=== PATIENT | female | born 1945 | race Caucasian/White ===

== ENCOUNTER → 2024-01-19 06:20 | Day surgery (SDC) | payer OTHER, SELFPAY | LOC: GI 06:20 | PROVIDERS: ATTENDING PHYSICIAN Internal Medicine Gastroenterology; FAMILY PHYSICIAN Internal Medicine | DX: D12.0 Benign neoplasm of cecum (principal); D12.2 Benign neoplasm of ascending colon; D12.3 Benign neoplasm of transverse colon; K57.30 Diverticulosis of large intestine without perforation or abscess without bleeding; K64.8 Other hemorrhoids; Z86.010 Personal history of colon polyps | CPT/HCPCS: 45385; 45380; 45381; 88305 ==

== ENCOUNTER → 2024-02-08 13:42 | Outpatient (REF) | payer OTHER, SELFPAY | LOC: WDC 13:42 | PROVIDERS: ATTENDING PHYSICIAN Internal Medicine | DX: Z12.31 Encounter for screening mammogram for malignant neoplasm of breast (principal) | CPT/HCPCS: 77063; 77067 ==

== ENCOUNTER → 2024-04-04 09:36 | Outpatient (REF) | payer OTHER, SELFPAY ==
[2024-04-04 10:38] LABS: % Basophils 1.6 % (0-2); % Eosinophils 4.5 % (0-6); % Lymphocytes 35.1 % (20.5-51.1); % Neutrophils 49.8 % (42.2-75.2); Absolute Basophils 0.1 10^3/uL (0-0.2); Absolute Eosinophils 0.2 10^3/uL (0-0.7); Absolute Lymphocytes 1.3 10^3/uL (1.2-3.4); Absolute Monocytes 0.3 10^3/uL (0.1-0.6); Absolute Neutrophils 1.9 10^3/uL (1.4-6.5); Hematocrit 45.1 % (37.0-47.0); Hemoglobin 14.4 g/dL (12.0-16.0); Mean Corp Hgb Conc. 31.9 g/dL (33.0-37.0); Mean Corpuscular Hgb 29.4 pg (27.0-31.0); Mean Corpuscular Volume 92.2 fL (81.0-99.0); Mean Platelet Volume 10.2 fL (7.4-10.4); Nucleated Red Blood Cells % 0 %; Platelet Count 206 10^3/uL (130-400); Red Blood Cell Count 4.89 10^6/uL (4.20-5.40); White Blood Cell Count 3.8 10^3/uL (4.8-10.8)
[2024-04-04 11:30] LABS: ALT (SGPT) 35 U/L (0-35); AST (SGOT) 45 U/L (14-36); Albumin 4.4 g/dl (3.5-5.0); Alkaline Phosphatase 123 U/L (38-126); Blood Urea Nitrogen 18 mg/dl (7-17); Calcium 9.6 mg/dl (8.4-10.2); Carbon Dioxide 26 mmol/L (22-30); Chloride 106 mmol/L (98-107); Glucose 89 mg/dl (70-99); HDL Cholesterol 66 mg/dl; LDL Cholesterol, Calculated 93 mg/dl; Potassium 4.5 mmol/L (3.5-5.1); Sodium 140 mmol/L (135-145); Total Bilirubin 0.5 mg/dl (0.2-1.3); Total Cholesterol 180 mg/dl (50-199); Total Protein 7.4 g/dl (6.3-8.2); Triglyceride 107 mg/dl (10-149); Very Low Density Lipoprotein 21 mg/dl (0-30); eGFR > 60.00
== END ==
LOC: RAD 09:36
PROVIDERS: ATTENDING PHYSICIAN Internal Medicine
DX: Z86.69 Personal history of other diseases of the nervous system and sense organs (principal); R94.5 Abnormal results of liver function studies; E78.5 Hyperlipidemia, unspecified; H81.03 Meniere's disease, bilateral
CPT/HCPCS: 36415; 80053; 80061; 85025; 93880

== ENCOUNTER → 2025-02-11 12:17 | Outpatient (REF) | payer OTHER, SELFPAY | LOC: HWWDC 12:17 | PROVIDERS: ATTENDING PHYSICIAN Internal Medicine | DX: Z12.31 Encounter for screening mammogram for malignant neoplasm of breast (principal) | CPT/HCPCS: 77063; 77067 ==

== ENCOUNTER → 2025-04-03 11:23 | Outpatient (REF) | payer OTHER, SELFPAY ==
[2025-04-03 11:38] LABS: % Basophils 0.9 % (0-2); % Eosinophils 2.2 % (0-6); % Immature Granulocytes 0.3 % (0-0.5); % Monocytes 7.7 % (1.7-9.3); % Neutrophils 51.9 % (42.2-75.2); Absolute Basophils 0.1 10^3/uL (0-0.2); Absolute Eosinophils 0.2 10^3/uL (0-0.7); Absolute Lymphocytes 2.5 10^3/uL (1.2-3.4); Absolute Monocytes 0.5 10^3/uL (0.1-0.6); Absolute Neutrophils 3.5 10^3/uL (1.4-6.5); Hematocrit 44.3 % (37.0-47.0); Hemoglobin 14.7 g/dL (12.0-16.0); Mean Corp Hgb Conc. 33.2 g/dL (33.0-37.0); Mean Corpuscular Hgb 30.6 pg (27.0-31.0); Mean Corpuscular Volume 92.1 fL (81.0-99.0); Mean Platelet Volume 10.1 fL (7.4-10.4); Nucleated Red Blood Cells % 0 %; Platelet Count 228 10^3/uL (130-400); Red Blood Cell Count 4.81 10^6/uL (4.20-5.40); Red Cell Dist. Width 13.2 % (11.5-14.5); White Blood Cell Count 6.7 10^3/uL (4.8-10.8)
[2025-04-03 13:13] LABS: ALT (SGPT) 23 U/L (0-35); AST (SGOT) 27 U/L (14-36); Albumin 4.5 g/dl (3.5-5.0); Alkaline Phosphatase 108 U/L (38-126); Blood Urea Nitrogen 25 mg/dl (7-17); Calcium 9.4 mg/dl (8.4-10.2); Carbon Dioxide 26 mmol/L (22-30); Chloride 109 mmol/L (98-107); Glucose 88 mg/dl (70-99); HDL Cholesterol 76 mg/dl; LDL Cholesterol, Calculated 88 mg/dl; Sodium 143 mmol/L (135-145); Total Bilirubin 0.7 mg/dl (0.2-1.3); Total Cholesterol 183 mg/dl (50-199); Total Protein 7.6 g/dl (6.3-8.2); Triglyceride 96 mg/dl (10-149); Very Low Density Lipoprotein 19 mg/dl (0-30); eGFR > 60.00
== END ==
LOC: REG 11:23
PROVIDERS: ATTENDING PHYSICIAN Internal Medicine
DX: H81.03 Meniere's disease, bilateral (principal); E78.5 Hyperlipidemia, unspecified
CPT/HCPCS: 36415; 80053; 80061; 85025

== ENCOUNTER 2025-04-18 06:29 | Day surgery (SDC) | payer OTHER, SELFPAY | END 2025-04-18 15:20 | disposition home or self-care (01) | LOC: GI 06:29 | PROVIDERS: ATTENDING PHYSICIAN Internal Medicine Gastroenterology | DX: Z12.11 Encounter for screening for malignant neoplasm of colon (principal); K57.30 Diverticulosis of large intestine without perforation or abscess without bleeding; K63.5 Polyp of colon; K62.1 Rectal polyp; Z86.0101 Personal history of adenomatous and serrated colon polyps | CPT/HCPCS: 45385; 45380; 88305 ==

== ENCOUNTER 2025-07-08 06:14 | Day surgery (SDC) | payer OTHER, SELFPAY ==
--- NOTE | 2025-06-04 11:11 | CM ---
Addendum entered by Rosalba Cifuentes RN 07/09/25 10:45:
Plan for discharge to home with outpatient PT. CM called to make appointment for 07/10 at 10am at [facility] in [place]. CM updated patient and .
PLAN: Home with Outpatient PT.
Original Note:
Demographics: confirmed
Living situation: lives with
Support Person Post Operatively: , but for only a few days as has to go back to work.
History of
VN: None
SNF: None
Outpatient: Patient is requesting two week of home care as she does not have a ride to her appointments.
Has patient purchased required equipment: no, cm encouraged patient to review list. Encouraged questions.
PCP: active
Pharmacy: [facility]
Post Operative Discharge Plan: Patient will require a same day visit post operatively. Patient is agreeable to [facility]. CM sent referral via [facility] to [facility]. CM updated Meche at [facility] with need for a same day visit.
[2025-06-19 13:54] VITALS: BMI 27.8
[2025-06-19 13:54] LABS: Hematocrit 41.9 % (37.0-47.0); Hemoglobin 13.8 g/dL (12.0-16.0); Mean Corp Hgb Conc. 32.9 g/dL (33.0-37.0); Mean Corpuscular Volume 93.3 fL (81.0-99.0); Platelet Count 230 10^3/uL (130-400); Red Cell Dist. Width 13.5 % (11.5-14.5)
[2025-06-19 14:23] LABS: Glycohemoglobin (HgbA1c) 5.7 % (4.0-5.6)
[2025-06-19 14:36] LABS: ALT (SGPT) 25 U/L (0-35); AST (SGOT) 28 U/L (14-36); Albumin 4.3 g/dl (3.5-5.0); Alkaline Phosphatase 104 U/L (38-126); Blood Urea Nitrogen 18 mg/dl (7-17); Calcium 10.0 mg/dl (8.4-10.2); Carbon Dioxide 30 mmol/L (22-30); Chloride 105 mmol/L (98-107); Estimated Creatinine Clearance 57 ml/min; Glucose 85 mg/dl (70-99); Potassium 4.5 mmol/L (3.5-5.1); Sodium 141 mmol/L (135-145); Total Protein 7.2 g/dl (6.3-8.2); eGFR > 60.00
[2025-06-20 16:07] LABS: Vitamin D, 25-OH*** 34.3 ng/mL (30-80)
[2025-06-28 13:10] VITALS: BMI 27.8
[2025-07-08] VITALS (17 sets, daily range): BP systolic 89–167; BP diastolic 42–74; PULSE 70; BMI 27.8
[2025-07-08] MEDS: CELEBREX 200 MG PO (07:14)
[2025-07-08] MEDS: NORMOSOL-R/PLASMALYTE-A 1000 IV ×2 (07:14→17:22)
[2025-07-08] MEDS: TYLENOL 650 MG PO ×2 (07:14→19:32)
--- NOTE | 2025-07-08 07:15 | W.DS.TRANS ---
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
-
Discharge Instructions:
Sleep Apnea Risk Low
Discharge Diagnosis/Procedures R LU[facility] Dr Reveles 07/08/25
Diet As tolerated
Activity With Walker
Driving Restrictions No driving
Bathing Restrictions OK to Shower
Other Services PT
Instructions:
Stand-Alone Forms: SDS Total Hip and Knee D/C
Changes to Home Medications: Yes
Discharge Medications:
DC Medications w/original date entered in [employer]
mupirocin 2 % topical ointment 1 applic topical BID infection prevention #1 tube 06/17/25
atorvastatin 10 mg tablet 5 mg PO DAILY 06/18/25
calcium carbonate (Calcium 500) 1,000 mg PO DAILY 06/18/25
celecoxib 200 mg capsule 200 mg PO DAILY Anti-inflammatory #14 caps 06/19/25
dexamethasone 4 mg tablet 4 mg PO BID inflammation #6 tabs 06/19/25
famotidine 20 mg tablet 20 mg PO HS GI prophylaxis #30 tabs 06/19/25
gabapentin 300 mg capsule 300 mg PO HS sleep/pain #10 caps 06/19/25
ondansetron 4 mg disintegrating tablet 4 mg PO Q6H PRN n/v #20 tabs 06/19/25
oxycodone 5 mg tablet 5 mg PO Q6H PRN 1 tab moderate pain, 2 tabs severe pain #30 tabs 06/19/25
acetaminophen 500 mg tablet 1,000 mg (2 x 500 mg) PO QID #0 tabs 07/08/25
aspirin 325 mg tablet 325 mg PO DAILY blood clot prevention #1 tab 07/08/25
docusate sodium 100 mg capsule (Colace) 100 mg PO BID stool softner #1 cap 07/08/25
magnesium hydroxide 400 mg/5 mL oral suspension (Milk of Magnesia) 30 ml PO HS PRN constipation #1 mL 07/08/25
sennosides 8.6 mg tablet (Senokot) 17.2 mg (2 x 8.6 mg) PO BID laxative #2 tabs 07/08/25
Home Medication Changes
celecoxib 200 mg capsule 200 mg PO DAILY Anti-inflammatory #14 caps 06/19/25
dexamethasone 4 mg tablet 4 mg PO BID inflammation #6 tabs 06/19/25
famotidine 20 mg tablet 20 mg PO HS GI prophylaxis #30 tabs 06/19/25
gabapentin 300 mg capsule 300 mg PO HS sleep/pain #10 caps 06/19/25
ondansetron 4 mg disintegrating tablet 4 mg PO Q6H PRN n/v #20 tabs 06/19/25
oxycodone 5 mg tablet 5 mg PO Q6H PRN 1 tab moderate pain, 2 tabs severe pain #30 tabs 06/19/25
acetaminophen 500 mg tablet 1,000 mg (2 x 500 mg) PO QID #0 tabs 07/08/25
aspirin 325 mg tablet 325 mg PO DAILY blood clot prevention #1 tab 07/08/25
docusate sodium 100 mg capsule (Colace) 100 mg PO BID stool softner #1 cap 07/08/25
magnesium hydroxide 400 mg/5 mL oral suspension (Milk of Magnesia) 30 ml PO HS PRN constipation #1 mL 07/08/25
sennosides 8.6 mg tablet (Senokot) 17.2 mg (2 x 8.6 mg) PO BID laxative #2 tabs 07/08/25
Pending Results: No
[2025-07-08] MEDS: ZOFRAN 4 MG IV ×2 (10:39→17:22)
[2025-07-08] MEDS: CYKLOKAPRON 650 MG PO (12:14)
[2025-07-08] MEDS: ANCEF 5 IV ×2 (12:33→19:32)
[2025-07-08] MEDS: TYLENOL 1000 MG PO (13:42)
--- NOTE | 2025-07-08 13:43 | W.PN.ORTHO ---
Today's Communication / Plan
-
d/c am if stable
Assessment
.
Assessment:
Orthostasis
-IVF + Midodrine
-fall precuations
-monitor on tele
-minimize opioids
Plan
.
Surgery / Date: R [facility] Dr Reveles 07/08/25
DVT Prophylaxis: Aspirin
Activity:
Out of bed.
PT/OT
Discharge Plan: Home w/ Outpatient PT
Vital Signs and Labs
.
Vital Signs and Labs:
Lab Results
06/19/25 12:39
06/19/25 12:39
Temp Pulse Resp BP Pulse Ox
97.6 F 67 16 131/61 97
07/08/25 10:54 07/08/25 13:24 07/08/25 11:45 07/08/25 13:24 07/08/25 11:45
[2025-07-08] MEDS: LIPITOR PO (17:00)
[2025-07-08] MEDS: ASPIRIN 325 MG PO (18:33)
[2025-07-08] MEDS: DECADRON 4 MG IV (19:32)
[2025-07-08] MEDS: SENOKOT 17.2 MG PO (19:32)
[2025-07-08] MEDS: TORADOL 15 MG IV (19:32)
[2025-07-08] MEDS: COLACE 100 MG PO (19:32)
[2025-07-08] MEDS: BACTROBAN 2% OINTMENT 1 APPLIC NASAL (19:32)
[2025-07-08] MEDS: NEURONTIN 300 MG PO (21:37)
[2025-07-08] MEDS: PEPCID 20 MG PO (21:37)
[2025-07-09] MEDS: TYLENOL PO (00:04)
[2025-07-09 03:16] VITALS: BP 148/69
[2025-07-09] MEDS: TYLENOL 650 MG PO ×3 (04:24→13:36)
[2025-07-09] MEDS: ANCEF 5 IV (04:25)
[2025-07-09] MEDS: ROXICODONE 5 MG PO (06:00)
[2025-07-09 07:10] VITALS: BP 116/50
[2025-07-09] MEDS: COLACE 100 MG PO (09:12)
[2025-07-09] MEDS: ASPIRIN 325 MG PO (09:12)
[2025-07-09] MEDS: LIPITOR 5 MG PO (09:12)
[2025-07-09] MEDS: SENOKOT 17.2 MG PO (09:12)
[2025-07-09] MEDS: CELEBREX 200 MG PO (09:13)
[2025-07-09] MEDS: DECADRON 4 MG IV (09:45)
[2025-07-09] MEDS: BACTROBAN 2% OINTMENT 1 APPLIC NASAL (09:45)
[2025-07-09] MEDS: TORADOL 15 MG IV (09:46)
[2025-07-09 10:24] VITALS: BP 103/44; BP 115/54; BP 123/53; PULSE 84; O2SAT 94
[2025-07-09 11:25] VITALS: BP 135/46; PULSE 82
[2025-07-09 11:41] VITALS: BP 121/60
[2025-07-09] MEDS: FLUZONE HIGH-DOSE 2025-26 0.5 ML IM (11:52)
--- NOTE | 2025-07-09 12:33 | W.PN.ORTHO ---
Today's Communication / Plan
-
d/c
Assessment
.
Distal Motor Intact: Yes
Dressing:
Clean, dry and intact.
Assessment:
Orthostasis
-IVF + Midodrine
-fall precautions
-stable on tele
-BP stable POD#1
-dose Midodrine again b/f d/c-advised TEDs stockings at home w/ adequate hydration, salt, and minimize opioid
Plan
.
Surgery / Date: R LUCA Reveles 07/08/25
DVT Prophylaxis: Aspirin
Activity:
Out of bed.
PT/OT
Discharge Plan: Home w/ Outpatient PT
Subjective
.
.:
Patient resting comfortably.
Vital Signs and Labs
.
Vital Signs and Labs:
Lab Results
06/19/25 12:39
06/19/25 12:39
Temp Pulse Resp BP Pulse Ox
97.8 F 80 16 121/60 99
07/09/25 11:41 07/09/25 11:41 07/09/25 11:41 07/09/25 11:41 07/09/25 11:41
Non-invasive Hgb result: 12.9
Physical Exam
-
HEENT: No pallor, cyanosis, or jaundice. Throat clear.
NECK: Supple. No JVD.
RESPIRATORY: Lungs clear to auscultation.
CVS: S1, S2 normal. RRR.� No murmur, rub or gallop.
ABDOMEN: Soft, non-tender. No distension. BS+/normal.
EXTREMITIES: strength equal, no calf pain with palpation
AIRPLANE NAVIGATOR: AOx3. No focal deficits. swatch paster grossly intact
== END 2025-07-09 14:05 | disposition home or self-care (01) ==
LOC: SDS 06:14
PROVIDERS: ATTENDING PHYSICIAN Specialist; FAMILY PHYSICIAN Internal Medicine; OTHER PHYSICIAN Physician Assistant Medical
DX: M16.11 Unilateral primary osteoarthritis, right hip (principal); M85.80 Other specified disorders of bone density and structure, unspecified site
CPT/HCPCS: 27130; 36415; 73502; 80053; 82306; 83036; 85027; 87070; 90662; 93005; 97110; 97116; 97162; 97166; 97530; 97535; C1713; C1776; G0008

== ENCOUNTER 2025-07-10 08:34 | Emergency (ER) | payer OTHER, SELFPAY ==
[2025-07-10 08:50] VITALS: BP 149/76
[2025-07-10 10:00] VITALS: BMI 28.3
--- NOTE | 2025-07-10 10:59 | ED.GENMED ---
History of Present Illness
General
Chief Complaint: Post Operative Problem(s)
Source: patient and family
Time Seen by Provider: 07/10/25 10:03
History of Present Illness
History of Present Illness:
80-year-old female status post right total hip replacement 2 days ago presenting to the emergency department at the request of orthopedics for evaluation after she excellently fell onto the right hip when she got home yesterday after discharge from
the hospital. Today she had some increased pain, contacted the orthopedic office and was recommended to come to the ER for further evaluation. She states she did take a dose of her oxycodone which helped the pain but states still having some
trouble ambulating as she was after she got discharged from the hospital. Patient has no other concerns.
Past History
Past History
ED Past Medical History: Hypercholesterolemia
ED Past Surgical History: Orthopedic
Social History
Tobacco: Non-smoker
Alcohol: None
Drug: None
Personal:
Living: with family
Review of Systems
Review of Systems
All Other Systems: ROS reviewed and negative except as documented in HPI and ROS
Phy Exam
Physical Exam
Physical Exam:
GENERAL: Alert , in no apparent distress
EYE: conjunctiva clear
Head: Normocephalic atraumatic
NECK: Supple,
ENT: mmm.
LUNGS: no acute respiratory distress
NEUROLOGICAL: Alert and oriented
SKIN: Warm and dry, skin intact. Postoperative dressing in place, no obvious active bleeding
MUSCULOSKELETAL: well perfused. Easily palpable pedal and tibial pulse. Cap refill less than 2 seconds, sensation grossly intact to light touch.
PSYCH: Normal and appropriate interaction.
Scores
Heart Failure Risk
Heart Failure Risk Score: Not Applicable
Heart Score for Chest Pain Patients
STEMI patient?: Not applicable
Withdrawal Assessment of Alcohol
Withdrawal Assessment Completed?: Not applicable
Course
Orders/Labs/Results
Orders:
Orders
07/10/25 10:03
CR Hip - RT w/wo Pel 2-3 Vw* Urgent
Comment:
Reason For Exam: fall, recent total hip replacement
Include a pelvis x-ray?: Yes
07/10/25 11:16
PT Consult [Pt Eval And Treat] Urgent
Activity Level: Ambulate
Vital Signs
Initial and Last Documented VS:
Initial Vital Signs
Temp Pulse Resp BP Pulse Ox
97.6 F 69 18 149/76 98
07/10/25 08:50 07/10/25 08:50 07/10/25 08:50 07/10/25 08:50 07/10/25 08:50
Last Documented Vital Signs
Temp Pulse Resp BP Pulse Ox
97.6 F 69 18 149/76 98
07/10/25 08:50 07/10/25 08:50 07/10/25 08:50 07/10/25 08:50 07/10/25 11:04
MDM/Problems Addressed
Differential Diagnosis Includes:
Prosthesis fracture
Dislocation
contusion
postoperative pain
MDM/Problems Addressed:
80-year-old female presenting to the ER for evaluation at the request of orthopedics after she had an accidental fall 2 days postoperative from a right total hip replacement. Will obtain a hip x-ray and pelvis. Patient declining anything
additional for pain. Disposition pending.
*Radiology
Radiology exam reviewed: preliminary read by ED provider (No acute fracture, prosthesis intact)
*Pulse Oximetry
SaO2: 98
Oxygen Mode of Delivery: Room air
Patient hypoxic: no
*Critical Care Note
Total Time (30-74mins, 75-104mins- exclusive of procedures): Not Applicable
Patient Management
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
Escalation/DeEscalation of care consider admission/obs:
Reviewed the x-rays with patient's orthopedic physician, no fracture seen. He is okay with patient continuing postoperative plan including patient being able to ambulate as tolerated. Physical therapy consultation ordered, patient was able to use
a walker to get around and while she was not pain-free was able to do so and felt comfortable being discharged home. She does have a walker at home already. Continue pain medication as needed. Stable for discharge from the ER otherwise.
ED Attending Note
-
Portions of this chart may have been created with voice recognition software.� Occasional wrong word or��sound alike� substitutions may have occurred due to the inherent limitations of voice recognition software.
Discharge Plan
Departure
Patient Disposition: Home (Routine Discharge)
Date of Disposition: 07/10/25
Time of Disposition: 12:12
Patient with high blood pressure during this ER visit?: Yes
Discharge Problem:
Accidental fall, Hip pain, right
Instructions: Postoperative Pain (DC)
Prescriptions:
No Action
mupirocin 2 % ointment
1 applic topical BID Qty: 1 0RF
Patient Comments:
started treatment tuesday07/05/25 and completed BID,last took at home 07/08/25 in am
atorvastatin 10 mg Tablet
5 mg PO DAILY
calcium carbonate [Calcium 500] 500 mg calcium (1,250 mg) Tablet,Chewable
1,000 mg PO DAILY
celecoxib 200 mg capsule
200 mg PO DAILY Qty: 14 0RF
Rx Instructions:
*POST-OP USE ONLY
*take with food
famotidine 20 mg tablet
20 mg PO HS Qty: 30 0RF
Rx Instructions:
post-op
dexamethasone 4 mg tablet
4 mg PO BID Qty: 6 0RF
Rx Instructions:
take with food
post-op use only
gabapentin 300 mg capsule
300 mg PO HS Qty: 10 0RF
Rx Instructions:
*POST-OP USE ONLY
ondansetron 4 mg tablet,disintegrating
4 mg PO Q6H PRN (Reason: n/v) Qty: 20 0RF
Rx Instructions:
take 1/2h b/f pain med if recurrent nausea
allow to dissolve in mouth w/o water
oxycodone 5 mg tablet
5 mg PO Q6H PRN (Reason: 1 tab moderate pain, 2 tabs severe pain) Qty: 30 0RF
Rx Instructions:
Ongoing therapy
POST-OP USE ONLY
sennosides [Senokot] 8.6 mg tablet
17.2 mg PO BID Qty: 2 0RF
aspirin 325 mg tablet
325 mg PO DAILY Qty: 1 0RF
Rx Instructions:
Take with food
magnesium hydroxide [Milk of Magnesia] 400 mg/5 mL suspension
30 ml PO HS PRN (Reason: constipation) Qty: 1 0RF
Rx Instructions:
CONTINUE colace W/senokot-if no bowel movement 1 day POST-OP -add milk of mag
docusate sodium [Colace] 100 mg capsule
100 mg PO BID Qty: 1 0RF
acetaminophen 500 mg Tablet
1,000 mg PO QID Qty: 0 0RF
Referrals:
Luis Alberto Campbell MD [Family Provider, Internal Medicine]
Interventions
Interventions:
*Risk Screen - Suicide Last Done: 07/10/25 08:50
*General Assessment Last Done: 07/10/25 08:50
*Neglect/Abuse Screening Last Done: 07/10/25 08:50
ED-Skin Assessment Last Done: 07/10/25 10:01
Discharge Date and Time
Print Language: FAROESE
[2025-07-10 12:30] VITALS: BP 138/74
== END 2025-07-10 12:30 | disposition home or self-care (01) ==
LOC: EMR 08:34
PROVIDERS: EMERGENCY PHYSICIAN Emergency Medicine; FAMILY PHYSICIAN Internal Medicine
DX: M25.551 Pain in right hip (principal); W18.39XA Other fall on same level, initial encounter; E78.00 Pure hypercholesterolemia, unspecified; Z96.641 Presence of right artificial hip joint
CPT/HCPCS: 99283; 73502

== ENCOUNTER → 2025-08-23 09:49 | Outpatient (REF) | payer OTHER, SELFPAY ==
[2025-08-23 11:14] LABS: Hematocrit 36.5 % (37.0-47.0); Hemoglobin 11.4 g/dL (12.0-16.0); Mean Corp Hgb Conc. 31.2 g/dL (33.0-37.0); Mean Corpuscular Volume 95.5 fL (81.0-99.0); Nucleated Red Blood Cells % 0 %; Platelet Count 270 10^3/uL (130-400); Red Cell Dist. Width 13.5 % (11.5-14.5)
[2025-08-23 12:09] LABS: ALT (SGPT) 28 U/L (0-35); AST (SGOT) 30 U/L (14-36); Albumin 4.2 g/dl (3.5-5.0); Alkaline Phosphatase 147 U/L (38-126); Blood Urea Nitrogen 18 mg/dl (7-17); Calcium 9.4 mg/dl (8.4-10.2); Carbon Dioxide 30 mmol/L (22-30); Chloride 106 mmol/L (98-107); Glucose 85 mg/dl (70-99); Potassium 4.5 mmol/L (3.5-5.1); Sodium 141 mmol/L (135-145); Total Protein 6.9 g/dl (6.3-8.2); eGFR > 60.00
== END ==
LOC: REG 09:49
PROVIDERS: ATTENDING PHYSICIAN Internal Medicine
DX: R60.9 Edema, unspecified (principal)
CPT/HCPCS: 36415; 80053; 85025